=== PATIENT | male | born 1950 | race Caucasian/White ===

== ENCOUNTER 2016-09-15 17:24 | Emergency (ER) | payer OTHER ==
[~2016-09-15] VITALS: Ht 172.7 cm; Wt 122.7 kg
[2016-09-15] MEDS ORDERED: NAPROXEN500 MG PO (20:31)
[2016-09-15] MEDS ORDERED: COLACE100 MG PO (20:31)
[2016-09-15] MEDS ORDERED: PERCOCET 5/31 TABLET PO (20:31)
[2016-09-15 20:50] VITALS: BP 152/76
== END 2016-09-15 20:51 | disposition home or self-care (01) ==
LOC: EME 17:24 → EXP 17:24
DX: M54.5 Low back pain (principal); K40.20 Bilateral inguinal hernia, without obstruction or gangrene, not specified as recurrent; K57.30 Diverticulosis of large intestine without perforation or abscess without bleeding; Z87.891 Personal history of nicotine dependence
CPT/HCPCS: 74176; 81003; 99281; 99284; J8540